=== PATIENT | female | born 1980 | race Caucasian/White ===

== ENCOUNTER 2023-05-26 08:29 | Outpatient (CLI) | payer OTHER | END 2023-05-26 08:30 | disposition home or self-care (01) | LOC: SCSMRI 08:29 | PROVIDERS: ATTEND Family Medicine | DX: G44.1 Vascular headache, not elsewhere classified (principal) | CPT/HCPCS: 70551 ==

== ENCOUNTER 2025-05-02 12:41 | Outpatient (CLI) | payer OTHER ==
[~2025-05-02 12:41] MED LIST: GASTROGRAFIN 30 ML BOT ONE; Iopamidol 370 76% 100 ML VIAL ONE
== END 2025-05-02 12:42 | disposition home or self-care (01) ==
LOC: CT 12:41
PROVIDERS: ATTEND Internal Medicine Gastroenterology
DX: K52.9 Noninfective gastroenteritis and colitis, unspecified (principal); R10.31 Right lower quadrant pain
CPT/HCPCS: 74177